=== PATIENT | female | born 1960 | race Caucasian/White ===

== ENCOUNTER 2016-08-23 16:46 | Emergency (ER) | payer MEDICAID ==
[~2016-08-23] VITALS: Ht 165.1 cm; Wt 122.5 kg
[2016-08-23 19:01] LABS: Basophils # (auto) 0 uL; Basophils % (auto) 0.2 % (0.0-2.0); DEFINITIVE VIEW TRANSMISSION; Eosinophils # (auto) 0.2 uL; Eosinophils % (auto) 1.4 % (0.0-7.0); Hematocrit 44.8 % (36.0-46.0); Hemoglobin 13.6 g/dL (12.2-16.2); Lymphocytes % (auto) 36.1 % (10.0-50.0); Mean Corpuscular Hemoglobin 21.1 pg (28.0-32.0); Mean Corpuscular Hgb Conc. 30.5 g/dL (32.0-36.0); Mean Corpuscular Volume 69.4 fL (80.0-100.0); Mean Platelet Volume 7.1 fL (7.4-10.4); Monocytes # (auto) 0.6 uL; Monocytes % (auto) 5.1 % (0.0-12.0); Neutrophils # (auto) 6.4 uL; Neutrophils % (auto) 57.2 % (37.0-80.0); Platelet Count (auto) 434 10^3/uL (140-450); White Blood Cell 11.2 10^3/uL (4.4-10.8)
[2016-08-23 19:15] LABS: Red Cell Distribution Width 20.2 % (11.6-16.0)
[2016-08-23 19:16] LABS: Anisocytosis Moderate; Hypochromia Moderate; Microcytosis Marked; Platelet Estimate Adequate
[2016-08-23 19:19] LABS: INR 1.05 (0.9-1.15); Partial Thromboplastin Time 25.7 sec (22.64-33.71); Prothrombin Time 10.8 sec (9.37-12.3)
[2016-08-23 19:22] LABS: Albumin 2.6 g/dL (3.4-5.0); BUN/Creatinine Ratio 21.4; Calcium 7.9 mg/dL (8.5-10.1)
[2016-08-23 19:26] LABS: Bilirubin, Total 0.2 mg/dL (0.2-1.0); Total Protein 7.4 g/dL (6.4-8.2)
[2016-08-23 20:40] VITALS: BP 110/76
== END 2016-08-23 20:56 | disposition home or self-care (01) ==
LOC: ER 16:52
DX: L03.115 Cellulitis of right lower limb (principal); D72.829 Elevated white blood cell count, unspecified; J44.9 Chronic obstructive pulmonary disease, unspecified; I10 Essential (primary) hypertension; E11.9 Type 2 diabetes mellitus without complications; G62.9 Polyneuropathy, unspecified; F17.210 Nicotine dependence, cigarettes, uncomplicated; M79.89 Other specified soft tissue disorders; Z88.0 Allergy status to penicillin; Z88.1 Allergy status to other antibiotic agents; Z88.2 Allergy status to sulfonamides
CPT/HCPCS: 36415; 71010; 80053; 85025; 85049; 85379; 85610; 85730; 87040

== ENCOUNTER 2017-08-27 18:02 | Emergency (ER) | payer BC, MEDICAID ==
[~2017-08-27] VITALS: Ht 165.1 cm; Wt 100.7 kg
[2017-08-27 18:18] VITALS: BP 150/62
== END 2017-08-28 03:31 | disposition left against medical advice (07) ==
LOC: ER 18:02
DX: M54.5 Low back pain (principal); Z53.21 Procedure and treatment not carried out due to patient leaving prior to being seen by health care provider